=== PATIENT | female | born 1950 | race Caucasian/White ===

== ENCOUNTER 2024-09-05 01:02 | Inpatient (IN) | payer MEDICARE, MEDICAID ==
[~2024-09-05] VITALS: Ht 165.1 cm; Wt 72.5 kg
[2024-09-05 01:00] VITALS: PULSE 85; RESP 21; O2SAT 100
[2024-09-05] MEDS ORDERED: 0.9% SODIUM CHLORIDE 10 ML SYRINGE IVP PRN (01:15)
[2024-09-05] MEDS: CefTRIAXone 1 GM/DEXTROSE 50 ML IV ONE (01:20)
[2024-09-05] MEDS: SODIUM CHLORIDE 0.9% 1,800 ML IV ONE (01:20)
[2024-09-05 01:31] LABS: BASOPHILS % (AUTO) 0.6 % (0.0-2.0); EOSINOPHILS % (AUTO) 0.6 % (1.0-6.0); HEMATOCRIT 26.5 % (36-46); HEMOGLOBIN 8.8 g/dL (12.0-16.0); LYMPHOCYTES # (AUTO) 0.5 K/uL (1.0-4.8); LYMPHOCYTES % (AUTO) 8.8 % (22.0-44.0); MEAN CORPUSCULAR HEMOGLOBIN 30.5 pg (26.0-34.0); MEAN CORPUSCULAR VOLUME 92 fL (80-100); MONOCYTES # (AUTO) 0.7 K/uL (0.1-1.0); MONOCYTES % (AUTO) 10.4 % (2.0-9.0); NEUTROPHILS % (AUTO) 79.6 % (40.0-70.0); PLATELET COUNT (AUTO) 96 K/uL (150-450); RED BLOOD CELL COUNT(AUTO) 2.88 MIL/uL (4.00-5.20); RED CELL DISTRIBUTION WIDTH 18.6 % (11.5-14.5); WHITE BLOOD COUNT (AUTO) 6.3 K/uL (4.5-11.0)
[2024-09-05 01:31] LABS: ABG BASE EXCESS -0.7 mmol/L (-2.0-3.0); ABG CARBOXYHEMOGLOBIN 0.5 % (0.5-1.5); ABG HCO3 23.3 mmol/L (21.0-28.0); ABG OXYGEN SATURATION 99.8 % (94.0-98.0); ABG OXYHEMOGLOBIN 98.3 % (94.0-98.0); ABG TOTAL HEMOGLOBIN 9.5 G/dL (12.0-16.0); SOURCE, BLOOD GAS ARTERIAL; TEMPERATURE, FAHRENHEIT, BG 97.7 FAHREN (96.0-98.6)
[2024-09-05 01:40] LABS: ANION GAP 1 mmol/L (8-16); CALCIUM, TOTAL 8.7 mg/dL (8.8-10.5); CARBON DIOXIDE 32 mmol/L (22-29); CHLORIDE 96 mmol/L (98-107); CREATININE 1.42 mg/dL (0.60-1.30); GLOMERULAR FILTR. RATE CALC 36 mL/min (>60); GLUCOSE,RANDOM 114 mg/dL (70-110); LIPASE 32 U/L (16-77); POTASSIUM 5.6 mmol/L (3.5-5.1); SODIUM SERUM 129 mmol/L (136-145); UREA NITROGEN, BLOOD 23 mg/dL (7-18)
[2024-09-05 01:45] LABS: LACTIC ACID 0.8 mmol/L (0.4-2.0)
[2024-09-05 01:51] LABS: COVID AG,FIA SOURCE NASAL SWAB
[2024-09-05 01:54] LABS: B-TYPE NATRIURETIC PEPTIDE 1160 pg/mL (0-100)
[2024-09-05 01:59] LABS: PROTHROMBIN TIME 12.1 SEC (9.4-11.6)
[2024-09-05 02:01] LABS: APPEARANCE,URINE CLEAR (CLEAR); BILIRUBIN,URINE NEGATIVE (NEGATIVE); COLOR,URINE YELLOW (YELLOW); GLUCOSE, URINE (UA) NEGATIVE (NEGATIVE); KETONES,URINE NEGATIVE (NEGATIVE); LEUKOCYTE ESTERASE ,URINE NEGATIVE (NEGATIVE); NITRATE,URINE NEGATIVE (NEGATIVE); OCCULT BLOOD,URINE NEGATIVE (NEGATIVE); PH,URINE 5.5 (5.0-8.0); PROTEIN,URINE TRACE mg/dL (NEGATIVE); SPECIFIC GRAVITIY, URINE 1.014 (1.003-1.030); UROBILINOGEN,URINE <=1.0 mg/dL (<=1.0)
[2024-09-05 02:17] LABS: ABG PH 7.202 (7.350-7.450)
[2024-09-05 02:18] LABS: SARS-COV2 (COVID) ANTIGEN,FIA Negative (Negative)
[2024-09-05 02:18] LABS: ABG A-A DIFF O2 319.8 mmHg (10-20.0); ABG PCO2 71 mmHg (32.0-45.0); ALLEN TEST, BLOOD GAS Positive; O2 DEVICE,BLOOD GAS BIPAP (ROOM AIR); PO2, ARTERIAL BG 323.4 mmHg (83.0-108.0); SITE, BLOOD GAS LFT RADIAL
[2024-09-05 02:19] LABS: INSPIRATORY TIME, BG 0.9 SEC
[2024-09-05 02:21] LABS: INFLUENZA TYPE A NEGATIVE FOR TYPE A (NEGATIVE); INFLUENZA TYPE B NEGATIVE FOR TYPE B (NEGATIVE)
[2024-09-05 04:15] VITALS: PULSE 113; RESP 22; O2SAT 40
[2024-09-05] MEDS ORDERED: IPRATROPIUM BROMIDE 0.5 MG/2.5 ML NEB SOLUTION NEB PRN (04:30)
[2024-09-05] MEDS ORDERED: ONDANSETRON HCL 4 MG/2 ML VIAL IVP PRN (04:30)
[2024-09-05] MEDS ORDERED: ALBUTEROL SULFATE 2.5 MG/0.5 ML NEB SOLUTION NEB PRN (04:30)
[2024-09-05] MEDS ORDERED: SODIUM POLYSTYRENE SULFONATE 15 GM/60 ML SUSPENSION BOTTLE PO ONE (06:30)
[2024-09-05 06:50] LABS: BASOPHILS % (AUTO) 0.2 % (0.0-2.0); EOSINOPHILS % (AUTO) 0.2 % (1.0-6.0); HEMATOCRIT 27.2 % (36-46); LYMPHOCYTES # (AUTO) 0.2 K/uL (1.0-4.8); LYMPHOCYTES % (AUTO) 4.3 % (22.0-44.0); MEAN CORPUSCULAR HEMOGLOBIN 30.8 pg (26.0-34.0); MEAN CORPUSCULAR VOLUME 93 fL (80-100); MONOCYTES # (AUTO) 0.5 K/uL (0.1-1.0); MONOCYTES % (AUTO) 8.4 % (2.0-9.0); NEUTROPHILS # (AUTO) 4.8 K/uL (1.8-7.7); NEUTROPHILS % (AUTO) 86.9 % (40.0-70.0); PLATELET COUNT (AUTO) 87 K/uL (150-450); RED BLOOD CELL COUNT(AUTO) 2.92 MIL/uL (4.00-5.20); RED CELL DISTRIBUTION WIDTH 18.9 % (11.5-14.5); WHITE BLOOD COUNT (AUTO) 5.5 K/uL (4.5-11.0)
[2024-09-05 06:58] LABS: CALCIUM, TOTAL 8.5 mg/dL (8.8-10.5); CREATININE 1.31 mg/dL (0.60-1.30); POTASSIUM 5.5 mmol/L (3.5-5.1)
[2024-09-05] MEDS ORDERED: GABA-1216 PO (07:13)
[2024-09-05] MEDS ORDERED: DULO20CA19 PO (07:13)
[2024-09-05] MEDS ORDERED: HYDR-4062 PO (07:13)
[2024-09-05] MEDS ORDERED: METO50 PO (07:13)
[2024-09-05] MEDS ORDERED: TRAZ-252 PO (07:13)
[2024-09-05] MEDS ORDERED: BACL10TA PO (07:13)
[2024-09-05] MEDS ORDERED: LACT10SO85 PO (07:13)
[2024-09-05] MEDS ORDERED: BUME1TAB50 PO (07:13)
[2024-09-05] MEDS ORDERED: ASPIRIN 81 MG CHEWABLE TABLET PO ONE (07:15)
[2024-09-05 07:23] LABS: % IRON SATURATION 22.9 % (22-44)
[2024-09-05] MEDS: DEXTROSE 50%-WATER 25 GM/50 ML SYRINGE IVP ONE (07:32)
[2024-09-05] MEDS: INSULIN REGULAR, HUMAN 100 UNITS/ML IVP ONE (07:34)
[2024-09-05] MEDS: PIPERACILLIN/TAZO 3.375 GM/D5W 50 ML IV SCH (07:42)
[2024-09-05] MEDS ORDERED: HEPARIN SODIUM,PORCINE 5,000 UNITS/ML VIAL SQ SCH (08:00)
[2024-09-05] MEDS: FUROSEMIDE 20 MG/2 ML VIAL IVP SCH (08:05)
[2024-09-05 08:19] LABS: TROPONIN I-HIGH SENSITIVITY 27 ng/L (<51)
[2024-09-05] MEDS: DOCUSATE SODIUM 100 MG CAPSULE PO SCH (08:55)
[2024-09-05] MEDS: SODIUM POLYSTYRENE SULFONATE 15 GM/60 ML SUSPENSION BOTTLE PR ONE (09:03)
[2024-09-05] MEDS: ASPIRIN 300 MG RECTAL SUPPOSITORY PR ONE (09:03)
[2024-09-05 15:30] VITALS: PULSE 104; RESP 20; O2SAT 96
[2024-09-05 16:32] VITALS: BP 106/55; PULSE 116; RESP 18; TEMP 98.6; O2SAT 92
[2024-09-05] MEDS ORDERED: PANT40TA54 PO (16:35)
[2024-09-05] MEDS ORDERED: DULO20CA PO (16:35)
[2024-09-05] MEDS ORDERED: POTA-203 PO (16:35)
[2024-09-05] MEDS ORDERED: BUME0.5T5 PO (16:35)
[2024-09-05] MEDS ORDERED: FOLI-130 PO (16:35)
[2024-09-05] MEDS ORDERED: GABA-529 PO (16:35)
[2024-09-05] MEDS ORDERED: RIFAX550 PO (16:35)
[2024-09-05] MEDS ORDERED: BACL5TAB PO (16:35)
[2024-09-05] MEDS ORDERED: DICL100G60 TP (16:35)
[2024-09-05] MEDS ORDERED: LIDO700A30 TD (16:35)
[2024-09-05] MEDS ORDERED: LACT10SO9 PO (16:35)
[2024-09-05 20:00] VITALS: BP 129/82; PULSE 130; RESP 14; TEMP 97.5; O2SAT 95
[2024-09-05] MEDS: ATORVASTATIN CALCIUM 40 MG TABLET PO SCH (20:29)
[2024-09-05] MEDS ORDERED: SODIUM CHLORIDE 0.9% 250 ML IV ONE (20:53)
[2024-09-05] MEDS: CHLORHEXIDINE GLUCONATE 2% TOWELETTE [2'S/6'S] TP SCH (20:56)
[2024-09-05 21:39] VITALS: PULSE 130; RESP 15; O2SAT 94
[2024-09-05] MEDS: AMIODARONE HCL 150 MG in DEXTROSE 5%-WATER 97 ML IV ONE (22:45)
[2024-09-05] MEDS: AMIODARONE HCL 360 MG in DEXTROSE 5%-WATER 242.8 ML IV ONE (23:02)
[2024-09-06] VITALS (7 sets, daily range): BP systolic 101–135; BP diastolic 63–73; PULSE 107–139; RESP 14–18; TEMP 98.1–99; O2SAT 96–97
[2024-09-06] MEDS: AMIODARONE HCL 540 MG in DEXTROSE 5%-WATER 250 ML IV ONE (05:03)
[2024-09-06] MEDS: ETHYL ALCOHOL 62% ANTISEPTIC NASAL SANITIZER 0.6 ML AMPUL NASAL SCH (08:25)
[2024-09-06] MEDS: HEPARIN SODIUM,PORCINE 5,000 UNITS/ML VIAL SQ SCH (08:25)
[2024-09-06] MEDS: ASPIRIN 81 MG CHEWABLE TABLET PO SCH (08:43)
[2024-09-06] MEDS: LACTULOSE 20 GM/30 ML SOLUTION UDCUP PO SCH (08:43)
[2024-09-06 09:06] LABS: BASOPHILS % (AUTO) 0.6 % (0.0-2.0); HEMATOCRIT 24.9 % (36-46); HEMOGLOBIN 8.3 g/dL (12.0-16.0); LYMPHOCYTES # (AUTO) 0.5 K/uL (1.0-4.8); LYMPHOCYTES % (AUTO) 11.1 % (22.0-44.0); MEAN CORPUSCULAR HEMOGLOBIN 30.7 pg (26.0-34.0); MEAN CORPUSCULAR HGB CONC 33.2 G/dL (31.0-37.0); MEAN CORPUSCULAR VOLUME 92 fL (80-100); MONOCYTES # (AUTO) 0.5 K/uL (0.1-1.0); MONOCYTES % (AUTO) 11.7 % (2.0-9.0); NEUTROPHILS # (AUTO) 3.2 K/uL (1.8-7.7); NEUTROPHILS % (AUTO) 75.6 % (40.0-70.0); PLATELET COUNT (AUTO) 74 K/uL (150-450); RED BLOOD CELL COUNT(AUTO) 2.69 MIL/uL (4.00-5.20); RED CELL DISTRIBUTION WIDTH 19.1 % (11.5-14.5); WHITE BLOOD COUNT (AUTO) 4.3 K/uL (4.5-11.0)
[2024-09-06 09:34] LABS: POTASSIUM 3.8 mmol/L (3.5-5.1)
[2024-09-06 09:35] LABS: ALBUMIN 3.1 g/dL (3.4-5.0); BILIRUBIN,TOTAL 0.9 mg/dL (0.1-1.0); CALCIUM, TOTAL 8.7 mg/dL (8.8-10.5); CREATININE 1.28 mg/dL (0.60-1.30); MAGNESIUM 1.7 mg/dL (1.80-2.40); TOTAL PROTEIN, SERUM 6.5 g/dL (6.4-8.2)
[2024-09-06 09:44] LABS: TROPONIN I-HIGH SENSITIVITY 23 ng/L (<51)
[2024-09-06] MEDS: ACETAMINOPHEN 325 MG TABLET PO PRN (17:53)
[2024-09-06] MEDS: SPIRONOLACTONE 50 MG TABLET PO SCH (20:13)
[2024-09-06] MEDS: FUROSEMIDE 40 MG/4 ML VIAL IVP SCH (20:13)
[2024-09-06] MEDS: MORPHINE SULFATE 2 MG/ML SYRINGE IVP PRN (22:00)
[2024-09-06] MEDS ORDERED: SODIUM CHLORIDE 0.9% 500 ML IV ONE (22:08)
[2024-09-07] VITALS (7 sets, daily range): BP systolic 116–137; BP diastolic 58–93; PULSE 114–139; RESP 13–20; TEMP 98.2–99.1; O2SAT 97–100
[2024-09-07] MEDS: AMIODARONE HCL 750 MG in DEXTROSE 5%-WATER 485 ML IV SCH (04:00)
[2024-09-07 05:42] LABS: BASOPHILS % (AUTO) 0.4 % (0.0-2.0); EOSINOPHILS % (AUTO) 1.2 % (1.0-6.0); HEMATOCRIT 24.7 % (36-46); HEMOGLOBIN 8.1 g/dL (12.0-16.0); LYMPHOCYTES # (AUTO) 0.6 K/uL (1.0-4.8); LYMPHOCYTES % (AUTO) 14.4 % (22.0-44.0); MEAN CORPUSCULAR HEMOGLOBIN 30.5 pg (26.0-34.0); MEAN CORPUSCULAR HGB CONC 32.9 G/dL (31.0-37.0); MEAN CORPUSCULAR VOLUME 93 fL (80-100); MONOCYTES # (AUTO) 0.5 K/uL (0.1-1.0); MONOCYTES % (AUTO) 11.8 % (2.0-9.0); NEUTROPHILS # (AUTO) 2.8 K/uL (1.8-7.7); NEUTROPHILS % (AUTO) 72.2 % (40.0-70.0); PLATELET COUNT (AUTO) 73 K/uL (150-450); RED BLOOD CELL COUNT(AUTO) 2.67 MIL/uL (4.00-5.20); WHITE BLOOD COUNT (AUTO) 3.8 K/uL (4.5-11.0)
[2024-09-07 06:12] LABS: ALBUMIN 2.9 g/dL (3.4-5.0); CALCIUM, TOTAL 8.4 mg/dL (8.8-10.5); CREATININE 1.25 mg/dL (0.60-1.30); MAGNESIUM 1.5 mg/dL (1.80-2.40); PHOSPHORUS 3.4 mg/dL (2.5-4.9); POTASSIUM 3.2 mmol/L (3.5-5.1); TOTAL PROTEIN, SERUM 6.5 g/dL (6.4-8.2)
[2024-09-07] MEDS ORDERED: MAGNESIUM SULFATE 4 GM/WATER 100 ML IV PRN (08:45)
[2024-09-07] MEDS ORDERED: POTASSIUM CHL 10 MEQ/WATER 50 ML IV PRN (08:45)
[2024-09-07] MEDS: POTASSIUM CHLORIDE 20 MEQ ER TABLET PO PRN (13:35)
[2024-09-07] MEDS: MAGNESIUM SULFATE 2 GM/WATER 50 ML IV PRN (16:44)
[2024-09-08] VITALS (9 sets, daily range): BP systolic 105–127; BP diastolic 74–96; PULSE 100–130; RESP 18–20; TEMP 97.3–97.9; O2SAT 97–100
[2024-09-08] MEDS ORDERED: SODIUM CHLORIDE 0.9% 250 ML IV ONE (05:32)
[2024-09-08 07:20] LABS: ALBUMIN 2.9 g/dL (3.4-5.0); CALCIUM, TOTAL 8.5 mg/dL (8.8-10.5); CREATININE 1.24 mg/dL (0.60-1.30); MAGNESIUM 1.8 mg/dL (1.80-2.40); POTASSIUM 3.6 mmol/L (3.5-5.1); TOTAL PROTEIN, SERUM 6.4 g/dL (6.4-8.2)
[2024-09-08] MEDS: METOPROLOL TARTRATE 25 MG TABLET PO SCH (09:51)
[2024-09-08] MEDS: LORazepam 2 MG/ML VIAL IVP PRN (20:28)
[2024-09-09] VITALS (13 sets, daily range): BP systolic 119–136; BP diastolic 79–95; PULSE 72–150; RESP 18–22; TEMP 97.5–98.1; O2SAT 95–98
[2024-09-09] MEDS ORDERED: LORazepam 2 MG/ML VIAL IVP ONE
[2024-09-09] MEDS: LORazepam 2 MG/ML VIAL IM ONE (01:02)
[2024-09-09] MEDS: DIGOXIN 250 MCG/ML 2 ML AMP IVP ONE (10:09)
[2024-09-09 11:34] LABS: BASOPHILS % (AUTO) 0.5 % (0.0-2.0); HEMATOCRIT 29.2 % (36-46); HEMOGLOBIN 9.4 g/dL (12.0-16.0); LYMPHOCYTES # (AUTO) 0.5 K/uL (1.0-4.8); LYMPHOCYTES % (AUTO) 7.6 % (22.0-44.0); MEAN CORPUSCULAR HEMOGLOBIN 30.1 pg (26.0-34.0); MEAN CORPUSCULAR HGB CONC 32.2 G/dL (31.0-37.0); MEAN CORPUSCULAR VOLUME 93 fL (80-100); MONOCYTES # (AUTO) 0.8 K/uL (0.1-1.0); MONOCYTES % (AUTO) 12.9 % (2.0-9.0); NEUTROPHILS # (AUTO) 4.7 K/uL (1.8-7.7); PLATELET COUNT (AUTO) 114 K/uL (150-450); RED BLOOD CELL COUNT(AUTO) 3.12 MIL/uL (4.00-5.20); RED CELL DISTRIBUTION WIDTH 19.7 % (11.5-14.5)
[2024-09-09 12:09] LABS: CREATININE 1.3 mg/dL (0.60-1.30)
[2024-09-09 12:10] LABS: ALBUMIN 3.3 g/dL (3.4-5.0); BILIRUBIN,TOTAL 1.2 mg/dL (0.1-1.0); TOTAL PROTEIN, SERUM 7.2 g/dL (6.4-8.2)
[2024-09-10] VITALS (10 sets, daily range): BP systolic 131–153; BP diastolic 91–97; PULSE 100–126; RESP 18–22; TEMP 97.6–98.3; O2SAT 93–98
[2024-09-10 07:10] LABS: BASOPHILS % (AUTO) 0.3 % (0.0-2.0); EOSINOPHILS % (AUTO) 0.8 % (1.0-6.0); HEMOGLOBIN 9.5 g/dL (12.0-16.0); LYMPHOCYTES # (AUTO) 0.6 K/uL (1.0-4.8); MEAN CORPUSCULAR HEMOGLOBIN 30.4 pg (26.0-34.0); MEAN CORPUSCULAR HGB CONC 32.9 G/dL (31.0-37.0); MEAN CORPUSCULAR VOLUME 92 fL (80-100); MONOCYTES # (AUTO) 0.8 K/uL (0.1-1.0); MONOCYTES % (AUTO) 11.4 % (2.0-9.0); NEUTROPHILS # (AUTO) 5.6 K/uL (1.8-7.7); NEUTROPHILS % (AUTO) 78.5 % (40.0-70.0); PLATELET COUNT (AUTO) 129 K/uL (150-450); RED BLOOD CELL COUNT(AUTO) 3.14 MIL/uL (4.00-5.20); RED CELL DISTRIBUTION WIDTH 19.3 % (11.5-14.5); WHITE BLOOD COUNT (AUTO) 7.1 K/uL (4.5-11.0)
[2024-09-10 07:27] LABS: ALBUMIN 3.4 g/dL (3.4-5.0); BILIRUBIN,TOTAL 1.9 mg/dL (0.1-1.0); CALCIUM, TOTAL 9.4 mg/dL (8.8-10.5); CREATININE 1.19 mg/dL (0.60-1.30); POTASSIUM 3.9 mmol/L (3.5-5.1); TOTAL PROTEIN, SERUM 7.4 g/dL (6.4-8.2)
[2024-09-10 08:56] LABS: MAGNESIUM 1.4 mg/dL (1.80-2.40)
[2024-09-10] MEDS: MAGNESIUM OXIDE 400 MG TABLET PO PRN (11:37)
[2024-09-10] MEDS: METOPROLOL TARTRATE 50 MG TABLET PO SCH (11:37)
[2024-09-11 06:07] VITALS: BP 120/92; PULSE 114; RESP 20; TEMP 97.9; O2SAT 96
[2024-09-11 07:46] VITALS: BP 135/88; PULSE 109; RESP 20; TEMP 98.2; O2SAT 97
[2024-09-11] MEDS: AMIODARONE HCL 200 MG TABLET PO SCH (08:54)
[2024-09-11] MEDS: DIGOXIN 250 MCG/ML 2 ML AMP IVP ONE (08:55)
[2024-09-11 10:20] LABS: CANDIDA AURIS PCR,SURVEILLANCE Not Detected C(t) (Not Detectd)
[2024-09-11 16:17] VITALS: BP 140/102; PULSE 93; RESP 18; TEMP 97.9; O2SAT 95
[2024-09-11 21:57] VITALS: BP 133/84; PULSE 105; RESP 18; TEMP 97.5; O2SAT 98
[2024-09-12] VITALS (9 sets, daily range): BP systolic 124–140; BP diastolic 70–88; PULSE 70–89; RESP 18; TEMP 97.5–98.1; O2SAT 94–100
[2024-09-12 15:35] LABS: BASOPHILS % (AUTO) 0.7 % (0.0-2.0); EOSINOPHILS % (AUTO) 1.9 % (1.0-6.0); HEMATOCRIT 28.9 % (36-46); HEMOGLOBIN 9.3 g/dL (12.0-16.0); LYMPHOCYTES # (AUTO) 0.3 K/uL (1.0-4.8); LYMPHOCYTES % (AUTO) 8.1 % (22.0-44.0); MEAN CORPUSCULAR HEMOGLOBIN 30.8 pg (26.0-34.0); MEAN CORPUSCULAR HGB CONC 32.3 G/dL (31.0-37.0); MEAN CORPUSCULAR VOLUME 95 fL (80-100); MONOCYTES # (AUTO) 0.5 K/uL (0.1-1.0); MONOCYTES % (AUTO) 12.7 % (2.0-9.0); NEUTROPHILS # (AUTO) 3.2 K/uL (1.8-7.7); NEUTROPHILS % (AUTO) 76.6 % (40.0-70.0); RED BLOOD CELL COUNT(AUTO) 3.03 MIL/uL (4.00-5.20); RED CELL DISTRIBUTION WIDTH 20.4 % (11.5-14.5); WHITE BLOOD COUNT (AUTO) 4.2 K/uL (4.5-11.0)
[2024-09-12 15:51] LABS: CALCIUM, TOTAL 8.8 mg/dL (8.8-10.5); CREATININE 1.44 mg/dL (0.60-1.30)
[2024-09-12 16:35] LABS: PLATELET COUNT (AUTO) 70 K/uL (150-450); PLATELET MORPHOLOGY COMMENT LARGE PLTS PRESENT; RBC MORPHOLOGY COMMENT NORMAL RBC MORPH
[2024-09-13] VITALS (11 sets, daily range): BP systolic 101–110; BP diastolic 55–77; PULSE 55–90; RESP 16–18; TEMP 97.7–98; O2SAT 95–100
[2024-09-13] MEDS: POTASSIUM CHLORIDE 10 MEQ ER TABLET PO SCH (07:37)
[2024-09-13 08:02] LABS: ALBUMIN 2.7 g/dL (3.4-5.0); CALCIUM, TOTAL 8.4 mg/dL (8.8-10.5); CREATININE 1.28 mg/dL (0.60-1.30); POTASSIUM 3.3 mmol/L (3.5-5.1); TOTAL PROTEIN, SERUM 6.2 g/dL (6.4-8.2)
[2024-09-13] MEDS: FUROSEMIDE 40 MG/4 ML VIAL IVP SCH (08:37)
[2024-09-13] MEDS: SPIRONOLACTONE 50 MG TABLET PO SCH (08:37)
[2024-09-14] VITALS: PULSE 80
[2024-09-14] MEDS: PIPERACILLIN SODIUM/TAZOBACTAM 2.25 GM in DEXTROSE 5%-WATER 50 ML IV SCH (01:38)
[2024-09-14 04:00] VITALS: BP_SYST 124; BP_SYST 140; BP_DIAS 74; BP_DIAS 83; PULSE 103; PULSE 70; PULSE 91; RESP 16; RESP 20; TEMP 97.9; TEMP 98.1; O2SAT 95; O2SAT 98
[2024-09-14 06:40] LABS: ALBUMIN 2.7 g/dL (3.4-5.0)
[2024-09-14 07:59] VITALS: BP 123/80; PULSE 83; RESP 18; TEMP 97.7; O2SAT 100
[2024-09-14] MEDS: SPIRONOLACTONE 25 MG TABLET PO SCH (08:17)
[2024-09-14 10:06] LABS: MAGNESIUM 1.7 mg/dL (1.80-2.40)
[2024-09-14 10:21] LABS: CALCIUM, TOTAL 8.4 mg/dL (8.8-10.5); CREATININE 1.23 mg/dL (0.60-1.30); POTASSIUM 3.4 mmol/L (3.5-5.1)
[2024-09-14] MEDS ORDERED: MAGNESIUM SULFATE 2 GM/WATER 50 ML IV ONE (10:45)
[2024-09-14] MEDS: MAGNESIUM SULFATE 2 GM/WATER 50 ML IV ONE (11:32)
[2024-09-14] MEDS ORDERED: SODIUM CHLORIDE 0.9% 250 ML IV ONE ×2 (11:39→18:13)
[2024-09-14 12:17] VITALS: BP 115/70; PULSE 73; RESP 18; TEMP 97.5; O2SAT 98
[2024-09-14 15:05] VITALS: BP 132/68; PULSE 67; RESP 18; TEMP 97.7; O2SAT 94
[2024-09-15] MEDS ORDERED: FUROSEMIDE 40 MG TABLET PO SCH (09:00)
== END 2024-09-14 19:55 | DRG 291 ==
LOC: EMS 01:13 → EDH 04:22 → ICU 16:24 → 5S 09-07 18:20
PROVIDERS: ADMIT Internal Medicine; ATTEND Internal Medicine
PROC: 5A09357 Assistance with Respiratory Ventilation, Less than 24 Consecutive Hours, Continuous Positive Airway Pressure (ICD-10-PCS; 2024-09-05)
PROC: 5A0945A Assistance with Respiratory Ventilation, 24-96 Consecutive Hours, High Flow/Velocity Cannula (ICD-10-PCS; 2024-09-05)
PROC: 05HC33Z Insertion of Infusion Device into Left Basilic Vein, Percutaneous Approach (ICD-10-PCS; principal; 2024-09-10)
DX: I13.0 Hypertensive heart and chronic kidney disease with heart failure and stage 1 through stage 4 chronic kidney disease, or unspecified chronic kidney disease (principal); I50.33 Acute on chronic diastolic (congestive) heart failure; J18.9 Pneumonia, unspecified organism; J96.22 Acute and chronic respiratory failure with hypercapnia; J96.21 Acute and chronic respiratory failure with hypoxia; N17.9 Acute kidney failure, unspecified; D68.9 Coagulation defect, unspecified; E87.1 Hypo-osmolality and hyponatremia; I47.29 Other ventricular tachycardia; E87.4 Mixed disorder of acid-base balance; J44.0 Chronic obstructive pulmonary disease with (acute) lower respiratory infection; Z66 Do not resuscitate; Z20.822 Contact with and (suspected) exposure to COVID-19; D64.9 Anemia, unspecified; E87.5 Hyperkalemia; I48.91 Unspecified atrial fibrillation; K70.31 Alcoholic cirrhosis of liver with ascites; D69.6 Thrombocytopenia, unspecified; I07.1 Rheumatic tricuspid insufficiency; N18.9 Chronic kidney disease, unspecified; F32.A Depression, unspecified; F41.9 Anxiety disorder, unspecified; K21.9 Gastro-esophageal reflux disease without esophagitis; F10.10 Alcohol abuse, uncomplicated
CPT/HCPCS: 36245; 36569; 36600; 70450; 71045; 71250; 76937; 80048; 80053; 81003; 82040; 82140; 82805; 83540; 83550; 83605; 83690; 83735; 83880; 84100; 84132; 84145; 84484; 85025; 85045; 85610; 87040; 87081; 87481; 87804; 92526; 92610; 93005; 93306; 93925; 93970; 94660; 96365; 96375; 99291; G0238; J0282; J0696; J1160; J1644; J1815; J1940; J2060; J2270; J2543; J3475; J3480; J7040; J7050; J7060; 36415-L1; 36415-TC